=== PATIENT | male | born 1980 | race Caucasian/White ===

== ENCOUNTER → 2016-09-01 | Outpatient (CLI) | payer BC ==
--- NOTE | 2016-09-01 15:14 | DIAGNOSTIC IMAGING REPORT ---
LEFT TIBIA/FIBULA 2 VIEWS ROUTINE CLINICAL HISTORY: Left leg pain after fall. COMPARISON STUDY: None. FINDINGS: No fracture or dislocation within the left tibia or fibula. Soft tissues are unremarkable. No radiopaque foreign bodies. IMPRESSION: No fracture or dislocation within the left lower leg. Electronically signed by: Khurram Posadas M.D. 09/01/2016 3:12 PM Dictated Date/Time: 09/01/2016 3:06 PM
== END | disposition home or self-care (01) ==
LOC: C.RAD1850 13:48
PROVIDERS: ATTEND Internal Medicine Pulmonary Disease
DX: M79.605 Pain in left leg (principal)